=== PATIENT | female | born 1945 ===

== ENCOUNTER 2022-06-14 04:07 | Day surgery (SDC) | payer OTHER ==
[2022-06-14 08:03] VITALS: RESP 18
[2022-06-14] MEDS ORDERED: ONDANSETRON 4 MG/2 ML VIAL ONE (09:09)
[2022-06-14] MEDS ORDERED: MIDAZOLAM HCL 2 MG/2 ML SINGLE DOSE VIAL ONE (09:09)
[2022-06-14] MEDS ORDERED: FENTANYL CITRATE/PF 50 MCG/ML VIAL ONE (09:09)
[2022-06-14 10:47] VITALS: TEMP 98.8
[2022-06-14 11:52] VITALS: BP 130/69; PULSE 68
== END 2022-06-14 11:30 | disposition home or self-care (01) ==
LOC: JASU-SURG 04:07
PROVIDERS: ATTEND Urology
PROC: 0TF4XZZ Fragmentation in Left Kidney Pelvis, External Approach (ICD-10-PCS; principal; 2022-06-14 09:00)
DX: N20.0 Calculus of kidney (principal)
CPT/HCPCS: 82962

== ENCOUNTER 2022-07-25 04:07 | Day surgery (SDC) | payer OTHER ==
[2022-07-19 12:20] VITALS: BMI 29.2
[2022-07-25 10:54] VITALS: RESP 18
[2022-07-25 11:35] VITALS: BP 141/63; PULSE 71; TEMP 97.9
== END 2022-07-25 11:40 | disposition home or self-care (01) ==
LOC: JASU-SURG 04:07
PROVIDERS: ATTEND Urology
PROC: 0TF3XZZ Fragmentation in Right Kidney Pelvis, External Approach (ICD-10-PCS; principal; 2022-07-25 09:30)
DX: N20.0 Calculus of kidney (principal)
CPT/HCPCS: 82962